=== PATIENT | male | born 1990 | race Caucasian/White ===

== ENCOUNTER 2025-03-26 17:15 | Emergency (ER) | payer OTHER, SELFPAY ==
--- OUTSIDE RECORDS SUMMARY | 2024-12-31 09:15 | XMS_ITS ---
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 * Medical History: Objective: * Vitals: Assessment: Plan: * Treatment: * Billing Information: * Visit Code: * Procedure Codes: * Electronic signature of TITO Washington on 03/26/2025 at 05:25 PM EDT Sign off status: Pending * Provider: Nelson Rivera Date: 12/31/2024 Generated for Natanael hernandez/Julienne/Jaycee on: 0 03/26/2025 05:25 PM EDT
[2025-03-26] VITALS (16 sets, daily range): BP systolic 128–199; BP diastolic 82–103; PULSE 60–108; TEMP 37.2; O2SAT 91–99; BMI 29.5
--- NOTE | 2025-03-26 17:44 | ECG_ITS ---
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 Measurements Intervals [place] Rate: 97 P: 54 VT: 144 QRS: 60 QRSD: 86 T: 5 QT: 326 QTc: 380 Interpretive Statements 1100 Sinus rhythm 4068 Nonspecific Twave abnormality 9130 borderline ECG No previous ECG available for comparison Electronically Signed On 03-26-2025 18:31:18 EDT by SUNITA SARMIENTO M.D.
--- NOTE | 2025-03-26 17:50 | ED.GENADUL1 ---
HPI HPI - General Adult General Chief complaint: Arrhythmia/Palpitations Stated complaint: CHEST PAIN Time Seen by Provider: 03/26/25 17:23 Source: patient Mode of arrival: walk-in Limitations: no limitations History of Present Illness HPI narrative: 34-year-old male presents to the emergency department for chest pains and a headache and concern about his blood pressure. No trauma or injury. No cough or fever. He has been having these symptoms of the whole year and has been to an urgent care center several times and was told his blood pressure was high. He had an appointment with the PCP but he missed it. It is the right side of his head that hurts in the whole chest which is intermittent for the whole year. He has it every day. Related Data Home Medications ?Medication ?Instructions ?Recorded ?Confirmed No Known Home Medications 03/26/25 03/26/25 Allergies Allergy/AdvReac Type Severity Reaction Status Date / Time No Known Drug Allergies Allergy Verified 03/26/25 17:26 Review of Systems ROS Narrative A ten point review of systems is negative except as noted above. PFSH PFSH Social History Little interest or pleasure in doing things: not at all Feeling down, depressed, or hopeless: not at all Exam Narrative Exam Narrative: Nurses note and vital signs reviewed and patient is not hypoxic. General: The patient appears well and in no apparent distress. Patient is resting comfortably on cart. Skin: Warm, dry, no pallor noted. There is no rash noted. Head: Normocephalic, atraumatic Eye: Normal conjunctiva, no drainage Ears, Nose, Mouth, and Throat: oral mucosa is moist. Nares patent. Cardiovascular: Regular Rate and Rhythm Respiratory: Patient is in no distress, no accessory muscle use, lungs are clear to auscultation, no wheezing, rales or rhonchi Back: non-tender GI: Soft and nontender Musculoskeletal: The patient has no evidence of calf tenderness, no pitting edema, symmetrical pulses noted bilaterally Neurological: A&O, normal speech Psychiatric: Cooperative Constitutional Vital Signs, click to edit/add: Last Vital Signs Temp 98.9 F 03/26/25 17: Pulse 106 H 03/26/25 17:26 Resp 20 03/26/25 17:26 BP 160/100 H 03/26/25 17:26 Pulse Ox 98 03/26/25 17:26 O2 Del Method Room Air 03/26/25 17:26 Course Vital Signs Vital signs: Vital Signs Temperature 98.9 F 03/26/25 17:26 Pulse Rate 106 H 03/26/25 17:26 Respiratory Rate 20 03/26/25 17:26 Blood Pressure 160/100 H 03/26/25 17:26 Pulse Oximetry 98 03/26/25 17:26 Oxygen Delivery Method Room Air 03/26/25 17:26 Temperature 98.9 F 03/26/25 17:26 Pulse Rate 106 H 03/26/25 17:26 Respiratory Rate 20 03/26/25 17:26 Blood Pressure 160/100 H 03/26/25 17:26 Pulse Oximetry 98 03/26/25 17:26 Oxygen Delivery Method Room Air 03/26/25 17:26 Medical Decision Making MDM Narrative Medical decision making narrative: His laboratory analysis is negative. He presented with elevated blood pressure and was given IV hydralazine. Subsequently his blood pressure dropped and he is being given IV fluids and the patient is signed out to Dr. Santiago at change of shift. Differential Diagnosis Differential Diagnosis: Hypertension, anxiety, myocardial infarction Lab Data Lab results reviewed: Yes I reviewed the patient's lab results Labs: Lab Results 03/26/25 Range/Units 17:37 WBC 5.3 (4.0-11.0) 10^3/uL RBC 5.71 (4.70-6.10) 10^6/uL Hgb 17.6 (14.0-18.0) g/dL Hct 49.8 (42.0-54.0) % MCV 87.2 (80.0-94.0) fL MCH 30.8 (25.9-34.0) pg MCHC 35.3 H (29.9-35.2) g/dL RDW 11.7 (11.0-15.0) % Plt Count 199 (150-450) 10^3/uL MPV 9.4 L (9.5-13.5) fL Neut % (Auto) 47.7 (43.0-75.0) % Lymph % (Auto) 38.7 (20.5-60.0) % [place] % (Auto) 9.0 (1.7-12.0) % Eos % (Auto) 3.8 (0.9-7.0) % Baso % (Auto) 0.6 (0.2-2.0) % Neut # (Auto) 2.5 (1.4-6.5) 10^3/uL Lymph # (Auto) 2.1 (1.2-3.8) 10^3/uL [place] # (Auto) 0.5 (0.3-0.8) 10^3/uL Eos # (Auto) 0.2 (0.0-0.7) 10^3/uL Baso # (Auto) 0.0 (0.0-0.1) 10^3/uL Abs Immat Gran (auto) 0.01 (0.00-0.03) 10^3/uL Imm/Tot Granulo (auto) 0.2 (0.0-0.5) % Sodium 140 (136-145) mmol/L Potassium 4.3 (3.5-5.1) mmol/L Chloride 101 (98-107) mmol/L Carbon Dioxide 26.6 (21.0-32.0) mmol/L Anion Gap 16.7 BUN 15.0 (7.0-18.0) mg/dL Creatinine 1.11 (0.70-1.30) mg/dL Est GFR ( Amer) >60 (>=60 mL/min/1.73m^2) Est GFR (Non-Af Amer) >60 (>=60 mL/min/1.73m^2) BUN/Creatinine Ratio 13.5 Glucose 101 (74-106) mg/dL Calcium 9.8 (8.5-10.1) mg/dL Troponin I High Sens <4.0 L (4.0-76.1) pg/mL ECG Data Attestation: I personally reviewed and interpreted this ECG as follows: (EKG on my interpretation shows sinus rhythm with rate of 97 and no acute change) Discharge Plan Discharge Patient Disposition: Still a Patient
[2025-03-26 18:11] LABS: Basophils Percent Auto 0.6 % (0.2-2.0); Eosinophils Absolute Auto 0.2 10^3/uL (0.0-0.7); Eosinophils Percent Auto 3.8 % (0.9-7.0); Hematocrit 49.8 % (42.0-54.0); Hemoglobin 17.6 g/dL (14.0-18.0); Immature Granulocytes Abs Auto 0.01 10^3/uL (0.00-0.03); Immature Granulocytes Pct Auto 0.2 % (0.0-0.5); Lymphocytes Absolute Auto 2.1 10^3/uL (1.2-3.8); Lymphocytes Percent Auto 38.7 % (20.5-60.0); Mean Corpuscular HGB Conc 35.3 g/dL (29.9-35.2); Mean Corpuscular Hemoglobin 30.8 pg (25.9-34.0); Mean Corpuscular Volume 87.2 fL (80.0-94.0); Mean Platelet Volume 9.4 fL (9.5-13.5); Monocytes Absolute Auto 0.5 10^3/uL (0.3-0.8); Neutrophils Absolute Auto 2.5 10^3/uL (1.4-6.5); Neutrophils Percent Auto 47.7 % (43.0-75.0); Platelet Count 199 10^3/uL (150-450); Red Blood Count 5.71 10^6/uL (4.70-6.10); Red Cell Distribution Width 11.7 % (11.0-15.0); White Blood Count 5.3 10^3/uL (4.0-11.0)
[2025-03-26 18:28] LABS: Anion Gap 16.7; BUN Creatinine Ratio 13.5; Calcium 9.8 mg/dL (8.5-10.1); Carbon Dioxide 26.6 mmol/L (21.0-32.0); Chloride 101 mmol/L (98-107); Estimated GFR (African America >60 (>=60 mL/min/1.73m^2); Estimated GFR (Non-African Ame >60 (>=60 mL/min/1.73m^2); Glucose 101 mg/dL (74-106); Potassium 4.3 mmol/L (3.5-5.1); Sodium 140 mmol/L (136-145); Troponin I High Sensitivity <4.0 pg/mL (4.0-76.1)
--- NOTE | 2025-03-26 18:33 | XR_ITS ---
[facility] [place] [id number] Patient Name: COLLEEN YOUNG MRN: [id number] date: 1990 Sex: M Assigned Patient Location: ER Current Patient Location: ER Accession/Order Number: [id number] Exam Date: 03/26/2025 18:47 Report Date: 03/26/2025 18:47 At the request of: MICHAEL FLOWER MD Procedure: XR chest 1V Plain film chest Single view HISTORY: Chest fluttering oblique COMPARISON: None FINDINGS: SUPPORT DEVICES: None POSTSURGICAL CHANGES: None HEART: Within normal limits PULMONARY DAVION: Within normal limits MEDIASTINUM: Unremarkable LUNGS AND PLEURA: No acute lung process, pleural effusion or pneumothorax identified. BONY STRUCTURES: Intact ADDITIONAL FINDINGS None XR/XR chest 1V IMPRESSION: No acute process. Impression dictated by: Martínez Saucedo M.D. 03/26/2025 6:47 PM Dictation Location: [place] [address] Electronically authenticated by: [id number] Y Date: 03/26/2025 18:47
[2025-03-26] MEDS: HYDRALAZINE HCL 20 MG/ML VIAL 10 MG IVP (18:38)
== END 2025-03-26 19:35 | disposition home or self-care (01) ==
PROVIDERS: Emergency Medicine; Emergency Provider Emergency Medicine
DX: R07.9 Chest pain, unspecified (principal)
CPT/HCPCS: 36415; 71045; 80048; 84484; 85025; 93005; 96374; 99285; J0360